=== PATIENT | female | born 1985 | race Caucasian/White ===

== ENCOUNTER 2016-06-05 11:30 | Outpatient (CLI) | payer MEDICAID ==
[~2016-06-05] VITALS: Ht 165.1 cm; Wt 88.5 kg
[2016-06-05 12:43] VITALS: Ht 165.1 cm; Wt 88.5 kg
[2016-06-05 12:44] VITALS: BP 118/65; PULSE 81; RESP 18
[2016-06-05] MEDS ORDERED: PREN1TAB13 PO (12:49)
--- NOTE | 2016-06-05 15:02 | PN ---
DATE: The patient is a 30-year-old who presents at 25 weeks with vaginal discharge, whitish with some itch ing and burning with no vaginal bleeding, no uterine contractions, positive movement. Vital signs stable. Exam within normal limits. NST is reactive. ASSESSMENT: Intrauterine at 25 weeks, probable yeast infection. The patient was given a prescription for . Follow up with her [facility] within 1 to 2 days. Dictated By: GIANFRANCO MARTI MD /NTS Conf#: [id number] DID#: [id number]
== END 2016-06-05 12:56 | disposition home or self-care (01) ==
LOC: OBT 11:30 → L-D 11:32 → OBT 12:01 → L-D 12:01 → OBT 12:56
DX: O26.892 Other specified pregnancy related conditions, second trimester (principal); N89.8 Other specified noninflammatory disorders of vagina; L29.2 Pruritus vulvae; Z3A.25 25 weeks gestation of pregnancy
CPT/HCPCS: G0463